=== PATIENT | male | born 1965 | race Caucasian/White ===

== ENCOUNTER 2025-06-16 07:27 | Day surgery (SDC) | payer OTHER ==
[2025-06-16 07:58] LABS: PLATELET COUNT,PLT 177.0 K/uL (130-375); RED BLOOD CELL COUNT 5.44 M/uL (4.14-5.76); WHITE BLOOD CELL COUNT,WBC 7.0 K/uL (3.2-11.0)
[2025-06-16 08:13] LABS: BLOOD UREA NITROGEN,BUN 11.0 mg/dL (7-18); CARBON DIOXIDE,CO2 28.0 mmol/L (21-32); CHLORIDE,CL 104.0 mmol/L (100-108); CREATININE 0.9 mg/dL (0.8-1.3); EST CRCL DRUG DOSING (CG) 99.4 mL/min; ESTIMATED GFR 100.0 mL/min (>60); GLUCOSE RANDOM 99.0 mg/dL (74-106); POTASSIUM,K 3.9 mmol/L (3.6-5.2); SODIUM,NA 143.0 mmol/L (140-148)
[2025-06-16] MEDS ORDERED: Propofol 200 MG/20 ML SDV ONE (08:25)
[2025-06-16] MEDS ORDERED: Succinylcholine 200 MG/10 ML MDV ONE (08:25)
[2025-06-16] MEDS ORDERED: Glycopyrrolate 0.2 MG/ML 5 ML MDV ONE (08:25)
[2025-06-16] MEDS ORDERED: Dexamethasone 4 MG/ML SDV ONE (08:25)
[2025-06-16] MEDS ORDERED: Ondansetron 4 MG/2 ML SDV ONE (08:25)
[2025-06-16] MEDS: Lactated Ringers 1,000 ML IV SCH (08:25)
[2025-06-16] MEDS ORDERED: fentaNYL 250 MCG/5 ML SDV ONE (08:26)
[2025-06-16] MEDS: Nozin Nasal Sanitizer NASBOTH ONE (08:26)
[2025-06-16] MEDS ORDERED: Lactated Ringers 1,000 ML ONE (10:20)
[2025-06-16] MEDS ORDERED: fentaNYL 100 MCG/2 ML SDV ONE (10:40)
[2025-06-16 11:20] LABS: BODY FLUID TYPE SYNOVIAL FLUID; MONONUCLEAR, BODY FLUID 91 %; POLYMORPHONUCLEAR, BODY FLUID 9 %; WBC BODY FLUID 21 /ul
[2025-06-16] MEDS: Acetaminophen/oxyCODONE 325-5 MG Tab PO PRN (13:07)
== END 2025-06-16 14:18 | disposition home or self-care (01) ==
LOC: JP.SDS 07:27
PROVIDERS: ATTEND Specialist
DX: M25.462 Effusion, left knee (principal); G57.32 Lesion of lateral popliteal nerve, left lower limb; M65.962 Unspecified synovitis and tenosynovitis, left lower leg
CPT/HCPCS: 29873; 36415; 64713; 80048; 85027; 87070; 87077; 87186; 87205; 89050; A9270; J0330; J0665; J0690; J1100; J1596; J2405; J2704; J2710; J3010; J7120; J3490

== ENCOUNTER 2025-06-22 13:31 | Emergency (ER) | payer OTHER | END 2025-06-22 15:20 | disposition home or self-care (01) | LOC: JP.ED 13:31 | DX: M96.831 Postprocedural hemorrhage of a musculoskeletal structure following other procedure (principal); Z88.5 Allergy status to narcotic agent; Z79.899 Other long term (current) drug therapy; Z90.49 Acquired absence of other specified parts of digestive tract | CPT/HCPCS: 96365; 99283; J0690 ==

== ENCOUNTER 2025-06-30 17:58 | Inpatient (IN) | payer OTHER ==
[2025-06-30 18:25] LABS: BASOPHILS ABSOLUTE AUTO 0.03 K/uL (0.00-0.10); BASOPHILS PERCENT AUTO 0.2 % (0.1-1.3); EOSINOPHILS ABSOLUTE AUTO 0.03 K/uL (0.00-0.40); EOSINOPHILS PERCENT AUTO 0.2 % (0.0-5.4); IMMATURE GRAN ABSOLUTE AUTO 0.07 K/uL (0.00-0.23); IMMATURE GRAN PERCENT AUTO 0.4 % (0.0-0.7); LYMPHOCYTES ABSOLUTE AUTO 0.97 K/uL (0.8-3.3); LYMPHOCYTES PERCENT AUTO 5.5 % (11.4-47.7); MONOCYTES ABSOLUTE AUTO 1.19 K/uL (0.20-0.90); MONOCYTES PERCENT AUTO 6.8 % (3.3-12.6); NEUTROPHILS ABSOLUTE AUTO 15.25 K/uL (1.0-7.6); NEUTROPHILS PERCENT AUTO 86.9 % (40.0-78.1); PLATELET COUNT,PLT 229 K/uL (130-375); RED BLOOD CELL COUNT 5.06 M/uL (4.14-5.76); WHITE BLOOD CELL COUNT,WBC 17.5 K/uL (3.2-11.0)
[2025-06-30 18:41] LABS: A/G RATIO 1.1 (1.2-2.2); ALANINE AMINOTRANSFERASE,ALT 25 U/L (12-78); ASPARTATE AMNIOTRANSFERASE,AST 14 U/L (15-37); BILIRUBIN TOTAL 0.5 mg/dL (0.2-1.0); BLOOD UREA NITROGEN,BUN 12 mg/dL (7-18); CARBON DIOXIDE,CO2 24 mmol/L (21-32); CHLORIDE,CL 102 mmol/L (100-108); CREATININE 1.1 mg/dL (0.8-1.3); EST CRCL DRUG DOSING (CG) 81.32 mL/min; ESTIMATED GFR 78 mL/min (>60); GLUCOSE RANDOM 122 mg/dL (74-106); POTASSIUM,K 3.8 mmol/L (3.6-5.2); PROTEIN TOTAL,TP 7.3 g/dL (6.4-8.2); SODIUM,NA 137 mmol/L (140-148)
[2025-06-30] MEDS: diphenhydrAMINE 50 MG/ML SDV IVPUSH ONE (19:21)
[2025-06-30] MEDS: Acetaminophen/oxyCODONE 325-5 MG Tab PO PRN (21:29)
[2025-06-30] MEDS: Nozin Nasal Sanitizer NASBOTH SCH (22:10)
[2025-07-01] MEDS ORDERED: Propofol 200 MG/20 ML SDV ONE ×2 (16:24→16:25)
[2025-07-01] MEDS ORDERED: Midazolam 1 MG/ML 2 ML SDV ONE (16:25)
[2025-07-01] MEDS ORDERED: fentaNYL 100 MCG/2 ML SDV ONE (16:25)
[2025-07-01] MEDS ORDERED: Dexamethasone 4 MG/ML SDV ONE (16:37)
[2025-07-01] MEDS ORDERED: Ondansetron 4 MG/2 ML SDV ONE (16:37)
[2025-07-01] MEDS ORDERED: fentaNYL 250 MCG/5 ML SDV ONE (16:51)
[2025-07-01] MEDS: Linezolid 600 MG/300 ML 600 MG in Premix Bag 1 BAG IV ONE (17:00)
[2025-07-01] MEDS: fentaNYL 50 MCG/ML SDV IVPUSH ONE ×2 (18:33→21:02)
[2025-07-01] MEDS: fentaNYL 50 MCG/ML SDV IVPUSH PRN (20:01)
[2025-07-01] MEDS ORDERED: Naloxone 0.4 MG/ML SDV IVPUSH PRN (20:48)
[2025-07-01] MEDS: Lactobacillus Rhamnosus GG (Probiotic) Cap PO SCH (21:02)
[2025-07-01] MEDS: Ketorolac 30 MG/ML SDV IVPUSH PRN (21:02)
[2025-07-02] MEDS: Linezolid 600 MG/300 ML 600 MG in Premix Bag 1 BAG IV SCH (04:57)
[2025-07-02 07:18] LABS: BASOPHILS PERCENT AUTO 0.1 % (0.1-1.3); EOSINOPHILS PERCENT AUTO 0.0 % (0.0-5.4); IMMATURE GRAN ABSOLUTE AUTO 0.04 K/uL (0.00-0.23); IMMATURE GRAN PERCENT AUTO 0.3 % (0.0-0.7); LYMPHOCYTES ABSOLUTE AUTO 0.83 K/uL (0.8-3.3); LYMPHOCYTES PERCENT AUTO 6.6 % (11.4-47.7); MONOCYTES ABSOLUTE AUTO 1.30 K/uL (0.20-0.90); MONOCYTES PERCENT AUTO 10.4 % (3.3-12.6); NEUTROPHILS ABSOLUTE AUTO 10.35 K/uL (1.0-7.6); NEUTROPHILS PERCENT AUTO 82.6 % (40.0-78.1); PLATELET COUNT,PLT 187 K/uL (130-375); RED BLOOD CELL COUNT 3.96 M/uL (4.14-5.76); WHITE BLOOD CELL COUNT,WBC 12.5 K/uL (3.2-11.0)
[2025-07-02 07:21] LABS: BASOPHILS ABSOLUTE AUTO 0.01 K/uL (0.00-0.10); EOSINOPHILS ABSOLUTE AUTO 0.00 K/uL (0.00-0.40)
[2025-07-02 07:46] LABS: SEDIMENTATION RATE MANUAL 41 mm/hr (0-20)
[2025-07-03] MEDS: Acetaminophen/oxyCODONE 325-5 MG Tab PO PRN (08:31)
== END 2025-07-03 17:35 | disposition home or self-care (01) | DRG 487 ==
LOC: JP.ED 17:58 → JP.MS 20:27
PROVIDERS: ADMIT Specialist; ATTEND Specialist
PROC: 3E03329 Introduction of Other Anti-infective into Peripheral Vein, Percutaneous Approach (ICD-10-PCS; principal; 2025-06-30)
PROC: 0SBD0ZZ Excision of Left Knee Joint, Open Approach (ICD-10-PCS; 2025-06-30)
PROC: 0JDP0ZZ Extraction of Left Lower Leg Subcutaneous Tissue and Fascia, Open Approach (ICD-10-PCS; 2025-06-30)
DX: T84.54XA Infection and inflammatory reaction due to internal left knee prosthesis, initial encounter (principal); H40.9 Unspecified glaucoma; G47.30 Sleep apnea, unspecified; G62.9 Polyneuropathy, unspecified; Z96.649 Presence of unspecified artificial hip joint; Z96.652 Presence of left artificial knee joint; Z96.619 Presence of unspecified artificial shoulder joint; B95.7 Other staphylococcus as the cause of diseases classified elsewhere; Z90.89 Acquired absence of other organs; Z88.1 Allergy status to other antibiotic agents; Z88.5 Allergy status to narcotic agent; Z79.899 Other long term (current) drug therapy; Z87.442 Personal history of urinary calculi; Z87.81 Personal history of (healed) traumatic fracture; Z98.890 Other specified postprocedural states; Z90.49 Acquired absence of other specified parts of digestive tract; Z98.1 Arthrodesis status; Y79.2 Prosthetic and other implants, materials and accessory orthopedic devices associated with adverse incidents
CPT/HCPCS: 36415; 80053; 83605; 85025; 85651; 86140; 87040; 87070; 87075; 87077; 87186; 87205; 96365; 96375; 99285; 99285-25; A9270-GY; J0665; J1100; J1200; J1335; J1885; J2020; J2250; J2405; J2704; J3010; J3373; J3490; J7030; J7040; J7050

== ENCOUNTER 2025-07-06 13:29 | Emergency (ER) | payer OTHER ==
[2025-07-06] MEDS ORDERED: Naloxone 0.4 MG/ML SDV IVPUSH PRN (14:29)
[2025-07-06] MEDS: Ondansetron 4 MG/2 ML SDV IVPUSH PRN (14:40)
[2025-07-06 14:51] LABS: BASOPHILS PERCENT AUTO 0.2 % (0.1-1.3); EOSINOPHILS ABSOLUTE AUTO 0.12 K/uL (0.00-0.40); EOSINOPHILS PERCENT AUTO 1.5 % (0.0-5.4); IMMATURE GRAN PERCENT AUTO 0.2 % (0.0-0.7); LYMPHOCYTES ABSOLUTE AUTO 1.16 K/uL (0.8-3.3); LYMPHOCYTES PERCENT AUTO 14.4 % (11.4-47.7); MONOCYTES ABSOLUTE AUTO 0.75 K/uL (0.20-0.90); MONOCYTES PERCENT AUTO 9.3 % (3.3-12.6); NEUTROPHILS ABSOLUTE AUTO 5.96 K/uL (1.0-7.6); NEUTROPHILS PERCENT AUTO 74.4 % (40.0-78.1); PLATELET COUNT,PLT 285 K/uL (130-375); RED BLOOD CELL COUNT 4.60 M/uL (4.14-5.76); WHITE BLOOD CELL COUNT,WBC 8.0 K/uL (3.2-11.0)
[2025-07-06 15:02] LABS: BASOPHILS ABSOLUTE AUTO 0.02 K/uL (0.00-0.10); IMMATURE GRAN ABSOLUTE AUTO 0.02 K/uL (0.00-0.23)
[2025-07-06 15:07] LABS: INR 1.1
[2025-07-06 15:12] LABS: A/G RATIO 0.8 (1.2-2.2); ALANINE AMINOTRANSFERASE,ALT 27 U/L (12-78); ASPARTATE AMNIOTRANSFERASE,AST 15 U/L (15-37); BILIRUBIN TOTAL 0.5 mg/dL (0.2-1.0); BLOOD UREA NITROGEN,BUN 7 mg/dL (7-18); CARBON DIOXIDE,CO2 26 mmol/L (21-32); CHLORIDE,CL 104 mmol/L (100-108); CREATININE 0.8 mg/dL (0.8-1.3); EST CRCL DRUG DOSING (CG) 111.82 mL/min; ESTIMATED GFR 103 mL/min (>60); GLUCOSE RANDOM 172 mg/dL (74-106); POTASSIUM,K 3.5 mmol/L (3.6-5.2); PROTEIN TOTAL,TP 6.8 g/dL (6.4-8.2); SODIUM,NA 139 mmol/L (140-148)
[2025-07-06] MEDS: Linezolid 600 MG/300 ML 600 MG in Premix Bag 1 BAG IV ONE (18:22)
== END 2025-07-06 21:22 | disposition home or self-care (01) ==
LOC: JP.ED 13:29
DX: M25.062 Hemarthrosis, left knee (principal); Z88.1 Allergy status to other antibiotic agents; Z88.5 Allergy status to narcotic agent; Z79.899 Other long term (current) drug therapy
CPT/HCPCS: 36415; 73700-LT; 76377; 80053; 82550; 83605; 85025; 85610; 86140; 87040; 96361; 96365; 96367; 96375; 96376; 99284-25; J1171; J2020; J2405; J3490; J7030